=== PATIENT | female | born 2000 | race Caucasian/White ===

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

== ENCOUNTER → 2021-03-20 21:30 | Outpatient (CLI) | payer BC, SELFPAY ==
[2021-03-20 21:58] LABS: Coronavirus 19, PCR Not Detected (NotDetected); Influenza A, PCR Not Detected (NotDetected); Influenza B, PCR Not Detected (NotDetected)
[2021-03-20 22:04] LABS: Basophils # 0.1 K/mm3 (0-0.2); Eosinophils # 0.4 K/mm3 (0.0-0.4); Eosinophils % 5.2 % (0.1-12.0); Hemoglobin 14.7 g/dL (12.2-16.2); Lymphocytes # 1.7 K/mm3 (0.7-4.5); Lymphocytes % 21.8 % (10-50); Mean Corpuscular HGB Conc 32.8 g/dL (31.8-35.4); Mean Corpuscular Hemoglobin 28.9 pg (27.0-31.2); Mean Corpuscular Volume 88.3 fl (81-99); Mean Platelet Volume 7.8 fl (7.4-10.4); Monocytes # 0.8 K/mm3 (0.1-1.0); Monocytes % 9.9 % (1.7-9.3); Neutrophils # 4.8 K/mm3 (1.8-7.8); Neutrophils % 62.1 % (37.0-80.0); Platelet Count 288 K/mm3 (142-424); Red Blood Count 5.09 M/mm3 (4.20-5.40); Red Cell Distribution Width 13.8 % (11.5-17.5); White Blood Count 7.8 K/mm3 (4.5-13.0)
[2021-03-20 22:25] LABS: Strep Scrn Group A (Rapid) Negative (Negative)
== END ==
PROVIDERS: PCP Family Medicine; Visit Provider Family Medicine
DX: Z20.822 Contact with and (suspected) exposure to COVID-19 (principal)
CPT/HCPCS: 36415; 85025; 87430; U0003

== ENCOUNTER 2021-04-09 12:56 | Emergency (ER) | payer BC, SELFPAY ==
[2021-04-09 13:30] VITALS: BP 122/86; PULSE 71; RESP 19; TEMP 37; O2SAT 95; BMI 20.7
--- NOTE | 2021-04-09 14:13 | HMH.EDUTC ---
[facility] [place] Clinical Impression: Exposure to COVID-19 virus Disposition: Home, Self-Care Condition on Discharge: Good Instructions: Preventing the Spread of Coronavirus Discharge Instructions Referrals: Esperanza Turner MD [Primary Care Provider] - Time of Disposition: 14:17 Medical Decision Making - Shawn Inquiry Pt receiving controlled substance: No Vital Signs: 04/09/21 13:30 Temperature 98.6 F Temperature Source Oral Pulse Rate [Right Brachial] 71 Respiratory Rate 19 Blood Pressure [Right Arm] 122/86 Blood Pressure Mean [Right Arm] 98 Blood Pressure Source [Right Arm] Automatic Cuff Blood Pressure Position [Right Arm] Sitting 02 Sat by Pulse Oximetry 95 Oxygen Delivery Method Room Air [facility] [place] HPI - General Stated complaint: covid test/exposure Time Seen by Provider: 04/09/21 14:14 Mode of Arrival: Ambulatory Source of Information: Patient Limitations: No Limitations Description of Symptoms (Recalled from Triage Doc. by RN): COVID TEST D/T EXPOSURE. DENIES SYMPTOMS HEENT Symptoms (Recalled from RN notes): No Resp Symptoms (Recalled from RN notes): No Skin Symptoms (Recalled from RN notes): No MS Symptoms (Recalled from RN notes): No Functional Status (Recalled from RN notes): WNL - History of Present Illness Provider Complaint: Father tested positive for COVID19 on 04/04/21. She denies symptoms. She has had first COVID vaccine. Onset (ago): day(s) (6) Relieving factors: none Exacerbating factors: none Associated symptoms: denies other symptoms Treatments prior to arrival: none - Related Data Previous Rx's Medication Instructions Recorded cephALEXin [Keflex 500mg Cap] 500 mg PO TID #30 cap 07/10/18 Allergies Allergy/AdvReac Type Severity Reaction Status Date / Time codeine [CODEINE] Allergy Mild Verified 07/10/18 00:18 penicillin G [PENICILLIN G] Allergy Mild Verified 07/10/18 00:18 - Worker's Comp Is this a Worker's Comp case?: No [facility] History - Hepatitis A Screen Drug use history?: No High risk sexual behaviors?: No History of sexually transmitted infection?: No Currently employed?: No Childcare worker?: No Do you have indoor plumbing?: Yes Do you have electricity?: Yes Attestation statement:: This patient has been screened for Hepatitis A risk factors. I have reviewed the patient's past medical history: Yes - Social History Alcohol Intake: never Occupational Status: student ROS Obtained: Yes All systems reviewed & no additional complaints Physical Exam - General General appearance: alert, in no apparent distress - Head Head exam: normocephalic - Eye Eye exam: Present: PERRL - ENT ENT exam: Present: normal oropharynx, TM's normal bilaterally - Neck Neck exam: Present: normal inspection. Absent: lymphadenopathy - Chest Chest inspection: Present: normal inspection, symmetric chest wall rise - Respiratory Respiratory exam: Present: normal lung sounds bilaterally - Cardiovascular Cardiovascular exam: Present: regular rate, normal rhythm - Neurological Exam Neurological exam: Present: alert, oriented X3 - Psychiatric Psychiatric exam: Present: normal affect, normal mood - Skin Skin exam: Present: warm, dry, intact
[2021-04-09 14:23] VITALS: BP 122/86; PULSE 71; RESP 19; TEMP 37; O2SAT 95
== END 2021-04-09 14:28 | disposition home or self-care (01) ==
PROVIDERS: Emergency Provider Physician Assistant; PCP Family Medicine
DX: Z20.822 Contact with and (suspected) exposure to COVID-19 (principal)
CPT/HCPCS: 99202; C9803; G0463; U0003; U0005

== ENCOUNTER 2021-04-16 15:40 | Emergency (ER) | payer BC, SELFPAY ==
[2021-04-16 16:00] VITALS: BP 119/77; PULSE 91; RESP 16; TEMP 36.9; O2SAT 99; BMI 20.5
--- NOTE | 2021-04-16 16:26 | HMH.EDUTC ---
[facility] [place] Disposition Clinical Impression: COVID-19 virus test result unknown Disposition: Home, Self-Care Condition on Discharge: Good Instructions: How to Care for Someone with COVID-19, Preventing the Spread of Coronavirus Discharge Instructions Additional Instructions: covid swab was sent to lab, call tomorrow for results. self isolate until test results are known to be negative Referrals: Provider,Referral, [Primary Care Provider] - Time of Disposition: 16:34 Medical Decision Making - Shawn Inquiry Pt receiving controlled substance: No Vital Signs: 04/16/21 16:00 Temperature 98.4 F Temperature Source Oral Pulse Rate [Right Brachial] 91 H Respiratory Rate 16 Blood Pressure [Right Arm] 119/77 Blood Pressure Mean [Right Arm] 91 Blood Pressure Source [Right Arm] Automatic Cuff Blood Pressure Position [Right Arm] Sitting 02 Sat by Pulse Oximetry 99 Oxygen Delivery Method Room Air Orders (Tests/Meds): ORDERS Category Date Time Status Covid-19 Nasal PCR ([facility]) Routine Lab 04/16/21 16:08 Received [facility] [place] HPI - General Chief complaint: Urgent Treatment Center Stated complaint: covid test Time Seen by Provider: 04/16/21 16:29 Mode of Arrival: Ambulatory Source of Information: Patient Limitations: No Limitations Description of Symptoms (Recalled from Triage Doc. by RN): PATIENT NEEDING COVID TEST TO RETURN TO COLLEGE HEENT Symptoms (Recalled from RN notes): No Resp Symptoms (Recalled from RN notes): No Skin Symptoms (Recalled from RN notes): No MS Symptoms (Recalled from RN notes): No Functional Status (Recalled from RN notes): WNL - History of Present Illness Provider Complaint: 20 yr old female presents for covid test. pt states no symptoms just needs test to return to school - Related Data Allergies Allergy/AdvReac Type Severity Reaction Status Date / Time codeine [CODEINE] Allergy Mild Verified 07/10/18 00:18 penicillin G [PENICILLIN G] Allergy Mild Verified 07/10/18 00:18 - Worker's Comp Is this a Worker's Comp case?: No [facility] History - Hepatitis A Screen Drug use history?: No High risk sexual behaviors?: No History of sexually transmitted infection?: No Currently employed?: No Childcare worker?: No Do you have indoor plumbing?: Yes Do you have electricity?: Yes Attestation statement:: This patient has been screened for Hepatitis A risk factors. I have reviewed the patient's past medical history: Yes - Social History Alcohol Intake: never Occupational Status: student ROS Obtained: Yes Systems reviewed as appropriate & no additional complaints - Constitutional Constitutional: Reports system reviewed and no additional complaints, except as docu, Denies fever(s) - Eyes Eyes: Reports system reviewed and no additional complaints, except as docu, Denies blurry vision - ENT Ears, Nose, Mouth, and Throat: Reports system reviewed and no additional complaints, except as docu, Denies sore throat - Cardiovascular Cardiovascular: Reports system reviewed and no additional complaints, except as docu, Denies chest pain - Respiratory Respiratory: Reports system reviewed and no additional complaints, except as docu, Denies chest congestion - Gastrointestinal Gastrointestingal: Reports: system reviewed and no additional complaints, except as docu. Denies: belching - Genitourinary Female Genitourinary: Reports system reviewed and no additional complaints, except as docu, Denies abnormal vaginal bleeding - Musculoskeletal Musculoskeletal: Reports system reviewed and no additional complaints, except as docu, Denies joint pain - Integumentary/Breasts Skin/Breast: Reports system reviewed and no additional complaints, except as docu, Denies rash - Neurologic Neurologic: Reports system reviewed and no additional complaints, except as docu, Denies dizziness - Endocrine Endocrine: Reports system reviewed and no additional complaints, except as docu, Denies fatigue - Hematologic
[2021-04-16 16:35] VITALS: BP 119/77; PULSE 91; RESP 16; TEMP 36.9; O2SAT 99
== END 2021-04-16 16:36 | disposition home or self-care (01) ==
PROVIDERS: Emergency Provider Nurse Practitioner Family
DX: Z20.822 Contact with and (suspected) exposure to COVID-19 (principal)
CPT/HCPCS: 99202; C9803; G0463; U0003; U0005

== ENCOUNTER → 2021-07-05 16:50 | Outpatient (CLI) | payer BC, SELFPAY ==
[2021-07-05 17:55] LABS: Coronavirus 19, PCR Not Detected (NotDetected); Influenza B, PCR Not Detected (NotDetected)
[2021-07-05 18:09] LABS: Basophils % 0.9 % (0.1-2.0); Eosinophils # 0.1 K/mm3 (0.0-0.4); Eosinophils % 1.6 % (0.1-12.0); Hematocrit 39.6 % (37.0-47.0); Hemoglobin 13.6 g/dL (12.2-16.2); Lymphocytes # 0.3 K/mm3 (0.7-4.5); Lymphocytes % 6.7 % (10-50); Mean Corpuscular HGB Conc 34.5 g/dL (31.8-35.4); Mean Corpuscular Hemoglobin 29.5 pg (27.0-31.2); Mean Corpuscular Volume 85.6 fl (81-99); Mean Platelet Volume 7.5 fl (7.4-10.4); Monocytes # 0.4 K/mm3 (0.1-1.0); Monocytes % 8.2 % (1.7-9.3); Neutrophils # 4.2 K/mm3 (1.8-7.8); Neutrophils % 82.7 % (37.0-80.0); Platelet Count 212 K/mm3 (142-424); Red Blood Count 4.63 M/mm3 (4.20-5.40); Red Cell Distribution Width 12.5 % (11.5-17.5); White Blood Count 5.1 K/mm3 (4.5-13.0)
[2021-07-05 19:02] LABS: Influenza A, PCR Detected (NotDetected)
== END ==
PROVIDERS: PCP Family Medicine; Visit Provider Family Medicine
DX: Z20.822 Contact with and (suspected) exposure to COVID-19 (principal); J11.1 Influenza due to unidentified influenza virus with other respiratory manifestations
CPT/HCPCS: 36415; 85025; C9803; U0003; U0005

== ENCOUNTER → 2023-03-21 23:55 | Outpatient (CLI) | payer BC, SELFPAY ==
[2023-03-21 19:15] LABS: Alanine Aminotransferase 12 U/L (12-78); Albumin Level 4.5 g/dl (3.5-5.0); Albumin/Globulin Ratio 1.6 (1.1-1.8); Alkaline Phosphatase 91 U/L (38-126); Anion Gap 16.1 mEq/L (5-15); Aspartate Amino Transferase 24 U/L (14-36); Bilirubin,Total 0.2 mg/dl (0.2-1.3); Blood Urea Nitrogen 7 mg/dl (7-17); Calcium 9.1 mg/dl (8.4-10.2); Carbon Dioxide 25 mmol/L (22.0-30.0); Chloride 105 mmol/L (98-107); Estimated Glomerular Filt Rate 126 ml/min (>60); GFR (African American) 153 ML/MIN (>60); Globulin 2.8 g/dL (1.3-3.2); Glucose 70 mg/dl (74-100); Potassium 4.1 mmoL/L (3.5-5.1); Sodium 142 mmol/L (136-145); Total Protein,Serum 7.3 g/dl (6.3-8.2)
[2023-03-21 19:41] LABS: Thyroid Stimulating Hormone 1.18 uIU/mL (0.465-4.68)
[2023-03-21 19:46] LABS: Basophils # 0.1 K/mm3 (0-0.2); Basophils % 0.8 % (0.1-2.0); Eosinophils # 1.1 K/mm3 (0.0-0.4); Eosinophils % 15.4 % (0.1-12.0); Hematocrit 45.3 % (37.0-47.0); Lymphocytes # 1.7 K/mm3 (0.7-4.5); Lymphocytes % 22.9 % (10-50); Mean Corpuscular HGB Conc 33.1 g/dL (31.8-35.4); Mean Corpuscular Hemoglobin 29.4 pg (27.0-31.2); Mean Corpuscular Volume 88.8 fl (81-99); Mean Platelet Volume 8.5 fl (7.4-10.4); Monocytes # 0.4 K/mm3 (0.1-1.0); Neutrophils # 4.1 K/mm3 (1.8-7.8); Neutrophils % 55.9 % (37.0-80.0); Platelet Count 238 K/mm3 (142-424); Red Cell Distribution Width 13.1 % (11.5-17.5); White Blood Count 7.3 K/mm3 (4.8-10.8)
[2023-03-21 21:29] LABS: Free T4 (Free Thyroxine) 1.08 ng/dl (0.78-2.19)
[2023-03-31 18:09] LABS: 1,25 Dihydroxy Vitamin D 51 pg/mL (.); 1,25-Dihydroxy, Vitamin D-2 <10 pg/mL (.); 1,25-Dihydroxy, Vitamin D-3 51 pg/mL (.)
== END ==
PROVIDERS: PCP Nurse Practitioner; Visit Provider Nurse Practitioner Acute Care
DX: F32.9 Major depressive disorder, single episode, unspecified (principal); F41.1 Generalized anxiety disorder; R63.39 Other feeding difficulties
CPT/HCPCS: 80053; 82652; 84439; 84443; 85025

== ENCOUNTER 2024-03-01 13:03 | Emergency (ER) | payer BC, SELFPAY ==
[2024-03-01 14:25] VITALS: BP 125/81; PULSE 94; RESP 18; TEMP 36.7; O2SAT 100; BMI 20.6
--- NOTE | 2024-03-01 14:53 | ED_ITS ---
Discharge Plan Disposition Patient Disposition: Home, Self-Care Condition: Good Prescriptions Prescriptions: No Action venlafaxine [Effexor XR] 150 mg capsule,extended release 24hr 150 mg PO DAILY Qty: 90 3RF propranolol 10 mg tablet 10 mg PO BID PRN (Reason: anxiety) Qty: 60 2RF buspirone 10 mg tablet 10 mg PO BID Qty: 60 2RF Referrals Follow up/Referrals: Bella Holguin APRN [Primary Care Provider] - See instructions Activity Restrictions/Add. Instructions Additional Instructions/Restrictions: covid swab was sent to lab, call tomorrow for results. self isolate until test results are known to be negative No sign of a bacterial infection. Likely viral. Viruses can take 7-14 days to run their course. Nasal saline and bulb syringe or nose Alycia to remove nasal drainage to help with nasal congestion. Hard to eat, drink, sleep with nasal congestion so important to keep this cleaned out. Monitor temp. Tylenol or Motrin as needed for pain or fever Encourage fluids, water, Gatorade, Powerade, Pedialyte if infant/toddler/child Warm salt water gargles Warm fluids Sore throat lozenges Sleep elevated Humidifier/vaporizer Follow-up immediately for new or worsening symptoms or no noticeable improvement over the next 48-72 hours. Clinical Impressions Clinical Impression: Exposure to COVID-19 virus, Upper respiratory infection, viral Instructions Patient Instructions: DI for Viral Upper Respiratory Infection -- Adult, DI for COVID-19 (Suspected or Confirmed ) Print Language Print Language: American Discharge ED Provider: Jerrod ([facility])Nikita [facility] [place] HPI General Stated complaint: headache, sore throat, fatigue Mode of Arrival: Ambulatory Source of Information: Patient Limitations: No Limitations Time Seen by Provider: 03/01/24 14:53 Description of Symptoms (Recalled from Triage Doc. by RN): PATIENT C/O HEADACHE, SORE THROAT, BODY ACHES, FATIGUE, CHILLS, AND CHEST CONGESTION X 3 DAYS HEENT Symptoms (Recalled from RN notes): Yes Resp Symptoms (Recalled from RN notes): Yes Skin Symptoms (Recalled from RN notes): No MS Symptoms (Recalled from RN notes): No Functional Status (Recalled from RN notes): WNL History of Present Illness Provider Complaint: 23 yr old female presents for c/o headache, sore throat, fatigue, body aches,chills, and chest congestion x 3 days- family has covid Related Data Previous Rx's ?Medication ?Instructions ?Recorded venlafaxine 150 mg 150 mg PO DAILY #90 caps 06/04/23 capsule,extended release 24 hr (Effexor XR) propranolol 10 mg tablet 10 mg PO BID PRN anxiety #60 tabs 09/12/23 buspirone 10 mg tablet 10 mg PO BID #60 tabs 11/01/23 Allergies Allergy/AdvReac Type Severity Reaction Status Date / Time codeine [CODEINE] Allergy Mild Verified 06/04/23 15:36 penicillin G [PENICILLIN G] Allergy Mild Verified 06/04/23 15:36 Worker's Comp Is this a Worker's Comp case?: No [facility] Disclaimer: The information contained in this section may have been updated after the patient was seen, as this information can be updated by other users. Medical History , EPIC APPLICATION COORDINATOR) Anxiety Family History , EPIC APPLICATION COORDINATOR) Diabetes Father FHx: mental illness Sister Hypertension Mother Social History , EPIC APPLICATION COORDINATOR) Smoking Status: Never smoker second hand exposure: No alcohol intake: never counseling given: Yes substance use type: denies use current occupational status: employed and student Travel in the last 8 weeks: None ROS Obtained: Yes All systems reviewed & no additional complaints except as documented Constitutional Constitutional: Reports system reviewed and no additional complaints, except as documented, Reports as per HPI, Reports body ache, Reports chills and Reports fever(s) Eyes Eyes: Reports system reviewed and no additional complaints, except as documented ENT Ears, Nose, Mouth, and Throat: Reports system reviewed and no additional complaints, except as documented, Reports as per HPI, Reports nasal congestion, Reports nasal discharge, Reports sinus pressure and Reports sore throat Cardiovascular Cardiovascular: Reports system reviewed and no additional complaints, except as documented Respiratory Respiratory: Reports system reviewed and no additional complaints, except as documented, Reports as per HPI and Reports cough Gastrointestinal Gastrointestingal: Reports system reviewed and no additional complaints, except as documented Musculoskeletal Musculoskeletal: Reports system reviewed and no additional complaints, except as documented Integumentary/Breasts Skin/Breast: Reports system reviewed and no additional complaints, except as documented Neurologic Neurologic: Reports system reviewed and no additional complaints, except as documented Endocrine Endocrine: Reports system reviewed and no additional complaints, except as documented Hematologic/Lymphatic Henatologic/Lymphatic: Reports system reviewed and no additional complaints, except as documented Allergic/Immunologic Allergic/Immunologic: Reports system reviewed and no additional complaints, except as documented Physical Exam General General appearance: alert and in no apparent distress Eye Eye exam: Present normal appearance and PERRL ENT ENT exam: Present normal exam, normal oropharynx, mucous membranes moist and TM's normal bilaterally Respiratory Respiratory exam: Present normal lung sounds bilaterally Cardiovascular Cardiovascular exam: Present regular rate and normal rhythm Neurological Exam Neurological exam: Present alert and oriented X3 Skin Skin exam: Present warm and intact Medical Decision Making Medical Records Medical records reviewed: Yes I reviewed the patient's medical records. Shawn Inquiry Pt receiving controlled substance: No Shawn was queried for this patient: No Vital Signs: 03/01/24 14:25 Temperature 98.0 F Temperature Source Oral Pulse Rate [Left Brachial] 94 H Respiratory Rate 18 Blood Pressure [Left Arm] 125/81 Blood Pressure Mean [Left Arm] 95 Blood Pressure Source [Left Arm] Automatic Cuff Blood Pressure Position [Left Arm] Sitting 02 Sat by Pulse Oximetry 100 Oxygen Delivery Method Room Air Orders (Tests/Meds): ORDERS Category Date Time Status Covid-19 Nasal PCR ([facility]) Routine Lab 03/01/24 14:38 Received
[2024-03-01 14:55] VITALS: BP 125/81; PULSE 94; RESP 18; TEMP 36.7; O2SAT 100
== END 2024-03-01 15:03 | disposition home or self-care (01) ==
PROVIDERS: Emergency Provider Nurse Practitioner Family; PCP Nurse Practitioner
DX: R51.9 Headache, unspecified (principal); R07.0 Pain in throat; R53.83 Other fatigue; J06.9 Acute upper respiratory infection, unspecified; M79.18 Myalgia, other site; B34.9 Viral infection, unspecified
CPT/HCPCS: 87635; 99212; 99213; G0463

== ENCOUNTER 2024-05-05 10:06 | Outpatient (CLI) | payer BC, SELFPAY ==
[2024-05-05 19:27] LABS: Basophils # 0.1 K/mm3 (0-0.2); Basophils % 1.1 % (0.1-2.0); Eosinophils # 1.6 K/mm3 (0.0-0.4); Eosinophils % 15.1 % (0.1-12.0); Hematocrit 43.9 % (37.0-47.0); Hemoglobin 14.8 g/dL (12.2-16.2); Lymphocytes # 1.8 K/mm3 (0.7-4.5); Lymphocytes % 17.3 % (10-50); Mean Corpuscular HGB Conc 33.6 g/dL (31.8-35.4); Mean Corpuscular Hemoglobin 29.5 pg (27.0-31.2); Mean Corpuscular Volume 87.8 fl (81-99); Mean Platelet Volume 7.6 fl (7.4-10.4); Monocytes # 0.4 K/mm3 (0.1-1.0); Monocytes % 4.1 % (1.7-9.3); Neutrophils # 6.5 K/mm3 (1.8-7.8); Neutrophils % 62.4 % (37.0-80.0); Platelet Count 284 K/mm3 (142-424); Red Cell Distribution Width 13.3 % (11.5-17.5); White Blood Count 10.4 K/mm3 (4.8-10.8)
[2024-05-05 20:10] LABS: Alanine Aminotransferase 13 U/L (12-78); Albumin Level 4.4 g/dl (3.5-5.0); Albumin/Globulin Ratio 1.5 (1.1-1.8); Alkaline Phosphatase 106 U/L (38-126); Anion Gap 11.3 mEq/L (5-15); Aspartate Amino Transferase 25 U/L (14-36); Bilirubin,Total 0.5 mg/dl (0.2-1.3); Blood Urea Nitrogen 7 mg/dl (7-17); Calcium 9.7 mg/dl (8.4-10.2); Carbon Dioxide 28 mmol/L (22.0-30.0); Chloride 106 mmol/L (98-107); Estimated Glomerular Filt Rate 105 ml/min (>60); GFR (African American) 127 ML/MIN (>60); Globulin 2.9 g/dL (1.3-3.2); Glucose 77 mg/dl (74-100); Potassium 4.3 mmoL/L (3.5-5.1); Sodium 141 mmol/L (136-145); Total Protein,Serum 7.3 g/dl (6.3-8.2)
[2024-05-05 20:32] LABS: Free T4 (Free Thyroxine) 1.04 ng/dl (0.78-2.19)
[2024-05-05 20:34] LABS: 25-OH Vitamin D, Total 37.5 ng/mL (30-100)
[2024-05-05 20:41] LABS: Thyroid Stimulating Hormone 3.24 uIU/mL (0.465-4.68)
[2024-05-05 21:00] LABS: Vitamin B12 228 pg/mL (239-931)
== END 2024-05-05 23:59 | disposition home or self-care (01) ==
LOC: LAB.DROPOF 05-06 10:07
PROVIDERS: PCP Nurse Practitioner Acute Care; Visit Provider Nurse Practitioner Acute Care
DX: F41.9 Anxiety disorder, unspecified (principal)
CPT/HCPCS: 80050; 80053; 82306; 82607; 84439; 84443; 85025

== ENCOUNTER 2024-10-26 21:06 | Emergency (ER) | payer BC, SELFPAY ==
[2024-10-26 21:18] VITALS: PULSE 95; O2SAT 99
[2024-10-26 21:21] VITALS: BP 133/72; PULSE 99; RESP 18; TEMP 36.8; O2SAT 98; BMI 22.1
--- NOTE | 2024-10-26 21:26 | XR_ITS ---
PROCEDURE INFORMATION: Exam: XR Left Foot Exam date and time: 10/26/2024 9:37 PM Age: 24 years old Clinical indication: Other: Lateral foot and ankle pain. Previous injuries TECHNIQUE: Imaging protocol: Radiologic exam of the left foot. Views: 3 or more views. Total images: 3 COMPARISON: CR XR FOOT LT MIN 3V 10/26/2024 9:37 PM FINDINGS: Bones/joints: Age indeterminate but likely acute cortical avulsion injury dorsal surface of the navicular bone, shown on the lateral view. No additional fracture or joint dislocation. Unremarkable joint spaces. No concerning bone lesions. Soft tissues: Mild soft tissue swelling overlying the navicular bone. IMPRESSION: Likely acute cortical avulsion fracture dorsal surface of the navicular bone.
--- NOTE | 2024-10-26 21:26 | XR_ITS ---
PROCEDURE INFORMATION: Exam: XR Left Ankle Exam date and time: 10/26/2024 9:37 PM Age: 24 years old Clinical indication: Other: Lateral foot and ankle pain. Previous injuries TECHNIQUE: Imaging protocol: Radiologic exam of the left ankle. Views: 3 or more views. Total images: 3 COMPARISON: CR XR FOOT LT MIN 3V 10/26/2024 9:37 PM FINDINGS: Bones/joints: No acute fracture, joint dislocation, or joint effusion. No concerning bone lesions or calcifications. The ankle mortise is maintained. Unremarkable joint spaces. Soft tissues: Unremarkable soft tissues. IMPRESSION: Negative left ankle.
[2024-10-26 21:30] VITALS: BP 112/78; PULSE 101; O2SAT 98
[2024-10-26 21:41] VITALS: PULSE 87
--- NOTE | 2024-10-26 21:42 | [facility].EDGENADL ---
Discharge Plan Disposition Patient Disposition: Home, Self-Care Chief Complaint: Extremity Injury, Lower Prescriptions Prescriptions: No Action dextroamphetamine-amphetamine [Adderall] 10 mg tablet 10 mg PO DAILY PRN (Reason: Focus) Qty: 12 0RF Rx Instructions: Take at 2 pm as needed. Mirena 21 mcg/24hr (up to 8 yrs) 52 mg intrauterine device intrauterine lisdexamfetamine [Vyvanse] 70 mg capsule 70 mg PO DAILY Qty: 30 0RF propranolol 10 mg tablet 10 mg PO BID PRN (Reason: anxiety) Qty: 60 2RF buspirone 10 mg tablet 10 mg PO TID Qty: 270 0RF desvenlafaxine succinate [Pristiq] 100 mg tablet extended release 24 hr 100 mg PO DAILY Qty: 90 0RF Referrals Follow up/Referrals: Marcella Lira APRN [Primary Care Provider] - See instructions Activity Restrictions/Add. Instructions Additional Instructions/Restrictions: Call your family doctor to establish care for this visit to the emergency department and schedule follow-up within 48 hours to ensure improvement. If you have any worsening of your condition or any other concerning signs or symptoms, return to the emergency department or your primary care doctor for further evaluation. Take Tylenol 1000 mg every 6 hours (4 times daily) and ibuprofen 400 mg every 6 hours (4 times daily) as needed with food and water to prevent GI upset and kidney damage. Clinical Impressions Clinical Impression: Left ankle sprain Qualifiers: Encounter type: initial encounter Print Language Print Language: Samoan Discharge ED Provider: Clifton Manjarrez General Adult HPI General Chief complaint: Extremity Injury, Lower Stated complaint: AO 10/26/24 193 injury foot & left ankle Time Seen by Provider: 10/26/24 21:10 Mode of Arrival: Ambulatory Source of Information: Patient Description of Symptoms (Recalled from ER Triage Doc. by RN): PT C/O LEFT SIDED ANKLE PAIN S/P STEPPING IN HOLE AND TWISTING IT. NO OBVIOUS DEFORMITY NOTED History of Present Illness HPI narrative: Please note that above description of symptoms, in this electronic medical record under categorization of recalled from ER triage doctor by RN are reflective of an initial nursing assessment, however, is not reflective of my full history and physical exam that was personally taken and clarified. Consequentially, this preceding description of symptoms, which may include the patient's categorized chief complaint in the EMR, do not reflect my personal clinical impression, and the ultimate description of history of present illness and patient stated complaints should be deferred to this section of the note. Unless stated otherwise or congruent with this section of the note, additional signs, symptoms, or incongruence should be interpreted as inaccurate with my clinical impression. Related Data Home Medications ?Medication ?Instructions ?Recorded ?Confirmed levonorgestrel (Mirena) intrauterine 08/05/24 09/07/24 Previous Rx's ?Medication ?Instructions ?Recorded propranolol 10 mg tablet 10 mg PO BID PRN anxiety #60 tabs 09/12/23 buspirone 10 mg tablet 10 mg PO TID #270 tabs 06/17/24 desvenlafaxine succinate 100 mg 100 mg PO DAILY #90 tabs 08/05/24 tablet,extended release 24 hr (Pristiq) dextroamphetamine-amphetamine 10 10 mg PO DAILY PRN Focus #12 tabs 09/02/24 mg tablet (Adderall) lisdexamfetamine 70 mg capsule 70 mg PO DAILY #30 caps 10/09/24 (Vyvanse) Allergies Allergy/AdvReac Type Severity Reaction Status Date / Time codeine (CODEINE) Allergy Mild Unknown Verified 10/26/24 21:27 allergy reaction penicillin G (PENICILLIN G) Allergy Mild Unknown Verified 10/26/24 21:27 allergy reaction PFSH PFSH Disclaimer: The information contained in this section may have been updated after the patient was seen, as this information can be updated by other users. Medical History Anxiety Surgical History No history of previous surgery Family History Father Diabetes Mother Hypertension Sister FHx: mental illness Social History Smoking Status: Never smoker second hand exposure: No alcohol intake: never counseling given: Yes substance use type: denies use current occupational status: employed and student Travel in the last 8 weeks: None Have you lived/traveled outside [place] in past 30 days?: No Contact w/someone who lives/traveled outside [place] past 30 days?: No Exposure to someone with infectious disease in past 14 days?: No Do you have a fever (greater than 100.4 F or 38 C)?: No Have you tested positive for COVID-19: No Exposed to someone with COVID-19 in past 14 days?: No Do you have a sore throat?: No Do you have a cough?: No Do you have any weakness?: No Do you have any diarrhea?: No Are you experiencing any unusual bleeding?: No Do you have any muscle aches/pain?: No Do you have any abdominal pain?: No Are you experiencing loss of taste or smell?: No Other Medical History Have you received the Flu Vaccine for this season: No Have you received the Pneumonia Vaccine: No ROS Obtained: Yes All systems reviewed & no additional complaints except as documented Physical Exam General General appearance: alert Head Head exam: atraumatic and normocephalic Eye Eye exam: Present normal appearance, PERRL and EOMI Neck Neck exam: Present normal inspection, full ROM and trachea midline Respiratory Respiratory exam: Absent respiratory distress, wheezes, stridor, accessory muscle use or prolonged expiratory phase Cardiovascular Cardiovascular exam: Present other (Pulses equal symmetric in upper and lower extremities) Abdominal Exam Abdominal exam: Present soft; Absent distention, tenderness or pulsatile mass Extremities Exam Extremities exam: Present other (Tenderness along posterior aspect of lateral malleolus as well as base of fifth metatarsal without outward signs of injury or abnormality); Absent edema Neurological Exam Neurological exam: Present alert, oriented X3 and CN II-XII intact; Absent motor sensory deficit Skin Skin exam: Present warm and dry; Absent diaphoresis or erythema Medical Decision Making Medical Records Medical records reviewed: Yes I reviewed the patient's medical records. Screening: Per USPSTF and CDC recommendations, given the prevalence of disease in our region, it is our hospital?s policy to screen for HIV and viral Hepatitis for all patients aged 18 and over and those with ongoing risk factors. Shawn Inquiry Pt receiving controlled substance: No Shawn was queried for this patient: No Vital Signs: 10/26/24 21:18 10/26/24 21:21 10/26/24 21:30 Temperature 98.2 F Temperature Source Oral Pulse Rate 95 H 101 H Pulse Rate [Apical] 99 H Pulse Rate [Left Dorsalis Pedis] Respiratory Rate 18 Blood Pressure 112/78 Blood Pressure [Right Arm] 133/72 Blood Pressure Mean [Right Arm] 92 02 Sat by Pulse Oximetry 99 98 98 Oxygen Delivery Method Room Air 10/26/24 21:41 10/26/24 21:45 Temperature Temperature Source Pulse Rate 100 H Pulse Rate [Apical] Pulse Rate [Left Dorsalis Pedis] 87 Respiratory Rate Blood Pressure 122/75 Blood Pressure [Right Arm] Blood Pressure Mean [Right Arm] 02 Sat by Pulse Oximetry 98 Oxygen Delivery Method Orders (Tests/Meds): ORDERS Category Date Time Status Ankle XR - Left minimum 3 Views [XR ankle LT min 3V] Exams 10/26/24 21:26 Taken Stat Foot XR left minimum 3 views [XR foot LT min 3V] Stat Exams 10/26/24 21:26 Taken Medical Decision Narrative: 24-year-old female numerous left foot and ankle injuries presenting with left foot and ankle injury. She states that she was walking outside just prior to arrival, stepped in a hole, twisted her ankle. She is able to bear weight with the medial aspect of her foot, but she bears weight on the lateral aspect of her foot and ankle she has significant pain and is able to hobble around. History was obtained via conversation with patient and family. On arrival, patient hemodynamically stable, alert, oriented x4, appropriate, GCS 15, moving all extremities spontaneously, pupils equal and reactive to light. Full physical exam performed and significant for tenderness along lateral malleolus and base of fifth metatarsal, no outward signs of injury or deformity. Neurovascular intact range of motion is intact. Differential includes pain, strain, fracture, dislocation, among others. Because patient not having much pain at rest, Tylenol and Motrin were considered, but not deemed necessary. X-rays were obtained. On independent interpretation, these were negative for any acute abnormality. Because patient at baseline without signs or symptoms of clinical decompensation, deemed appropriate for discharge. Results were relayed to patient who voiced understanding and were agreeable to outpatient management and follow up. I discussed my clinical impression with patient and answered all questions. At this time, the evidence for any other entities in the differential is insufficient to warrant any further testing or ED observation. This was explained as well. Advisory was given that persistent or worsening symptoms require further evaluation. I confirmed the understanding of this discussion. Correction Worker disclaimer Much of this encounter note is an electronic cephalometric analyst spoken language to printed text. Electronic cephalometric analyst of the spoken language may permit errors. Although I have reviewed the note, some errors may still exist. Critical Care Critical Care Time Critical Care Time: No
[2024-10-26 21:45] VITALS: BP 122/75; PULSE 100; O2SAT 98
[2024-10-26 22:22] VITALS: BP 125/70; PULSE 98; RESP 17; TEMP 36.7; O2SAT 99
== END 2024-10-26 22:25 | disposition home or self-care (01) ==
PROVIDERS: Emergency Provider Emergency Medicine; PCP Nurse Practitioner Acute Care
DX: S93.402A Sprain of unspecified ligament of left ankle, initial encounter (principal); W18.42XA Slipping, tripping and stumbling without falling due to stepping into hole or opening, initial encounter
CPT/HCPCS: 99283; 73610; 73630